=== PATIENT | male | born 1995 ===

== ENCOUNTER 2016-11-01 17:13 | Emergency (ER) | payer MEDICAID ==
[2016-11-01 17:13] VITALS: BMI 38.4
[2016-11-01 17:21] VITALS: BP 152/89; PULSE 110; RESP 16; O2SAT 99
[2016-11-01] MEDS ORDERED: Lidocaine 1% w Epi 1:100,000 Inj ONE (17:34)
--- NOTE | 2016-11-01 18:06 | ED PDOC ---
HPI: General Adult Time Seen by Provider: 11/01/16 17:30 Chief Complaint (Nursing): Abnormal Skin Integrity Chief Complaint (Provider): Lump on back of head History Per: Patient History/Exam Limitations: no limitations Onset/Duration Of Symptoms: Days Have you had recent travel within the past 21 days to any of the following countries: [place], [place], [place] or [place]?: No Current Symptoms Are (Timing): Still Present Additional History Per: Patient Additional Complaint(s): The patient is a 20yo male, presents to the ED for evaluation of a "lump" present on the back of his head for the past week. The patient reports pain to the area with associated fever. He denies any drainage from the lump and states he was put on an antibiotics by his PCP. Patient denies any falls or head injury. He is unsure if his tetanus is up to date. Patient offers no additional medical complaints. Of note, patient reports he had similar symptoms 2 months ago and was given a cream (unsure of name) and after using the cream, his symptoms resolved. PCP: Dr. Ramsey Past Medical History Reviewed: Historical Data, Nursing Documentation, Vital Signs Vital Signs: Last Vital Signs Temp 100.1 F H 11/01/16 17:19 Pulse 110 H 11/01/16 17:19 Resp 16 11/01/16 17:19 BP 152/89 H 11/01/16 17:19 Pulse Ox 99 11/01/16 18:16 - Medical History PMH: Depression - Surgical History Surgical History: No Surg Hx - Family History Family History: States: Unknown Family Hx - Home Medications Home Medications: Ambulatory Orders Medication Instructions Recorded Cephalexin [cephalexin] 500 mg PO BID #20 cap 09/22/14 Cephalexin [cephalexin] 500 mg PO QID #27 cap 04/02/16 Naproxen [Naprosyn] 500 mg PO BID PRN #20 tablet 04/02/16 - Allergies Allergies/Adverse Reactions: Allergies Allergy/AdvReac Type Severity Reaction Status Date / Time No Known Allergies Allergy Verified 09/22/14 11:48 Review of Systems ROS Statement: Except As Marked, All Systems Reviewed And Found Negative Constitutional: Positive for: Fever ENT: Positive for: Other (painful cyst present on occipital head) Physical Exam - Reviewed Nursing Documentation Reviewed: Yes Vital Signs Reviewed: Yes - Physical Exam Appears: Positive for: Well, Non-toxic, No Acute Distress Head Exam: Positive for: ATRAUMATIC, NORMOCEPHALIC. Negative for: NORMAL INSPECTION (approximately 8.0 cm sebaceous cyst, suppurative infection, areas with induration and others with fluctuance noted.) Skin: Positive for: Normal Color, Warm Eye Exam: Positive for: Normal appearance Neck: Positive for: Normal, Supple Cardiovascular/Chest: Positive for: Regular Rate, Rhythm Respiratory: Positive for: Normal Breath Sounds. Negative for: Respiratory Distress Neurologic/Psych: Positive for: Alert, Oriented. Negative for: Motor/Sensory Deficits - ECG O2 Sat by Pulse Oximetry: 99 (RA) Pulse Ox Interpretation: Normal Medical Decision Making Medical Decision Making: Time: 1734 Impression: Sebaceous cyst present on occipital scalp Plan: -- TDAP Booster -- See procedure note for I&D of cyst Reassess Time: 1813 Patient's PCP called who informs patient is currently on Clindamycin. Patient informed to keep the incision site clean and dry and to follow up at the ED 2 days later for a wound re-evaluation. Patient stable for discharge home. Scribe Attestation: Documented by Christel Brennan acting as a scribe for JOSE Solis Provider Attestation: All medical record entries made by the Scribe were at my direction and personally dictated by me. I have reviewed the chart and agree that the record accurately reflects my personal performance of the history, physical exam, medical decision making, and the department course for this patient. I have also personally directed, reviewed, and agree with the discharge instructions and disposition. Procedures - Time-Out Type of Procedure: I&D Site of Procedure: Occipital scalp Correct Patient (with visual ID + MR# on ID Band): Yes Correct Procedure: Yes Correct Site Marked: Yes Medication Reconciliation / Bloodwork / Allergies Checked: Yes PA/Tech: JOSE Solis-Jannet - Incision and Drainage Site: Occipital scalp Blade Size: 10 I & D Procedure: betadine prep, gauze wick placed Progress: Time: 1733 18 gauge needle used initially to drain pus. Lidocaine with 1% Epi used. 10 blade used and approximately 10cc's of purulent discharge expressed from incision site. Wound cleaned, packing placed and sterile dressing applied. Patient tolerated procedure well. Temperature taken after procedure: 99 degrees F Disposition - Clinical Impression Clinical Impression: Abscess, Sebaceous cyst - Disposition Disposition: Routine/Home Disposition Time: 18:17 Condition: STABLE Additional Instructions: RETURN TO ED IN 2 DAYS FOR REMOVAL OF GUAZE AND RE-EVALUATION. CONTINUE WITH CLINDAMYCIN RX Instructions: Abscess (ED), Cyst (ED) Forms: [employer] (Faroese)
[2016-11-01 18:48] VITALS: TEMP 99.4
== END 2016-11-01 18:49 | disposition home or self-care (01) ==
LOC: H.ER 17:13
DX: L72.3 Sebaceous cyst (principal); F32.9 Major depressive disorder, single episode, unspecified

== ENCOUNTER 2016-11-04 08:44 | Emergency (ER) | payer MEDICAID ==
[2016-11-04 08:47] VITALS: BP 120/78; PULSE 83; RESP 20; TEMP 98.1; O2SAT 99
[2016-11-04 08:48] VITALS: BMI 34.1
--- NOTE | 2016-11-04 09:58 | ED PDOC ---
HPI: Wound Care - HPI Time Seen by Provider: 11/04/16 09:19 Chief Complaint (Nursing): Wound Check Chief Complaint (Provider): wound check History Per: Patient Exam Limitations: no limitations Onset/Duration Of Symptoms: Hrs (3) Current Symptoms Are (Timing): Better Severity: Mild Additional Complaint(s): 20yo male c/o occipital scalp/ upper neck abscess I&D 3days ago in ED, packed, taking oral antibiotics, states improved, no fever, minimal pain to area. Denies other history of skin abscesses or infections. Past Medical History Reviewed: Historical Data, Nursing Documentation, Vital Signs Vital Signs: Last Vital Signs Temp 98.1 F 11/04/16 08:46 Pulse 83 11/04/16 08:46 Resp 20 11/04/16 08:46 BP 120/78 11/04/16 08:46 Pulse Ox 99 11/04/16 08:46 - Medical History PMH: Depression - Family History Family History: States: Unknown Family Hx - Social History Current smoker - smoking cessation education provided: No - Home Medications Home Medications: Ambulatory Orders Medication Instructions Recorded Cephalexin [cephalexin] 500 mg PO BID #20 cap 09/22/14 Cephalexin [cephalexin] 500 mg PO QID #27 cap 04/02/16 Naproxen [Naprosyn] 500 mg PO BID PRN #20 tablet 04/02/16 - Allergies Allergies/Adverse Reactions: Allergies Allergy/AdvReac Type Severity Reaction Status Date / Time No Known Allergies Allergy Verified 11/04/16 09:12 Review of Systems Constitutional: Negative for: Fever, Chills Respiratory: Negative for: Cough, Shortness of Breath Musculoskeletal: Negative for: Neck Pain, Shoulder Pain Skin: Negative for: Rash, Lesions Neurological: Negative for: Headache, Dizziness Physical Exam - Reviewed Nursing Documentation Reviewed: Yes Vital Signs Reviewed: Yes - Physical Exam Appears: Positive for: Well, Non-toxic Head Exam: Negative for: NORMAL INSPECTION (+ occipital scalp w healing abscess packing in place) Skin: Positive for: Normal Color, Warm Respiratory: Negative for: Respiratory Distress Neurologic/Psych: Positive for: Alert, Oriented, Gait (normal) - ECG O2 Sat by Pulse Oximetry: 99 Medical Decision Making Medical Decision Making: packing removed, wound irritated w 150ml sterile water, no induration, no tenderness. bacitracin applied. explained may reoccur, if so may need surgical exploration. Disposition - Clinical Impression Clinical Impression: Encounter for wound re-check - Patient ED Disposition Is Patient to be Admitted: No Counseled Patient/Family Regarding: Studies Performed, Diagnosis - Disposition Referrals: Acosta Wakefield MD [Staff Provider] - Disposition: Routine/Home Disposition Time: 09:45 Condition: STABLE Additional Instructions: Wound care as directed, continue antibiotics as prior prescribed. Return to ER for any fever, worse or new pain. Sample bacitracin given, use 3x daily to area for next 5 days. Instructions: Abscess Incision and Drainage (ED), Acute Wound Care (ED) Forms: [employer] (Turkish)
== END 2016-11-04 10:37 | disposition home or self-care (01) ==
LOC: H.ER 08:44
DX: Z48.00 Encounter for change or removal of nonsurgical wound dressing (principal)